=== PATIENT | male | born 1960 | race Two or more races ===

== ENCOUNTER 2018-04-26 22:14 | Emergency (ER) | payer MEDICAID ==
[~2018-04-26] VITALS: Ht 170.2 cm; Wt 77.1 kg
[~2018-04-26 22:14] MED LIST: BENTYL10 MG ORAL; CIPROFLOXACIN500 M2 ORAL; METRONIDAZOLE500 MG ORAL
[2018-04-26 23:00] VITALS: BP 168/82
--- NOTE | 2018-04-26 23:00 | NUR ---
ER Nurse Note: Pt came from home c/o blood in the stool that was first noted 1700. Pt stated mild pain, no diffculty voiding, no pain when deficating but noticed blood. Pt stated no trauma to the area. Pt a&ox4, VSS, no signs of distress. Bowel sounds heard in all quadrants. ERMD at pt side; will continue to montior.
[2018-04-26 23:42] LABS: BASOPHILS % (AUTO) 0.4 % (0.0-2.0); EOSINOPHILS % (AUTO) 1.4 % (0.0-3.0); HEMATOCRIT 47.2 % (42.0-52.0); HEMOGLOBIN 14.6 G/DL (14.2-18.0); LYMPHOCYTES % (AUTO) 17.4 % (20.0-45.0); MEAN CORPUSCULAR VOLUME 79 FL (80-99); MONOCYTES % (AUTO) 5.7 % (1.0-10.0); NEUTROPHILS % (AUTO) 75.1 % (45.0-75.0); PLATELET COUNT 452 K/UL (150-450); RED BLOOD COUNT 5.94 M/UL (4.70-6.10); WHITE BLOOD COUNT 10.8 K/UL (4.8-10.8)
[2018-04-26 23:47] LABS: BILIRUBIN, URINE NEGATIVE (NEGATIVE); GLUCOSE, URINE (UA) NEGATIVE (NEGATIVE); KETONES,URINE 1+ (NEGATIVE); NITRITE,URINE POSITIVE (NEGATIVE); PH,URINE 7 (4.5-8.0); PROTEIN,URINE 2+ (NEGATIVE); UROBILINOGEN,URINE 1 MG/DL (0.0-1.0)
[2018-04-26 23:50] LABS: ANION GAP 11 mmol/L (5-15); BLOOD UREA NITROGEN 20 mg/dL (7-18); CALCIUM 8.9 MG/DL (8.5-10.1); CARBON DIOXIDE 26 MMOL/L (21-32); CHLORIDE 104 MMOL/L (98-107); CREATININE 0.9 MG/DL (0.55-1.30); SODIUM 141 MMOL/L (136-145)
[2018-04-26 23:56] LABS: APPEARANCE,URINE CLOUDY; COLOR,URINE AMBER; LEUKOCYTE ESTERASE ,URINE 1+ (NEGATIVE)
--- NOTE | 2018-04-27 00:08 | Emergency Room Report ---
History of Present Illness General Chief Complaint: Gastrointestinal Bleed Source: Patient Present Illness [facility] This is a 57-year-old male with no past medical history. He presents with chief complaint of hematuria. Onset tonight. No pain. No obstruction. No nausea no vomiting but no fever chills. Never had this problem before. He has no weight loss in the last few weeks. Denies any other complaint. Allergies: Coded Allergies: No Known Allergies (Unverified , 04/26/18) Patient History Past Medical History: see triage record, old chart reviewed Past Surgical History: other Pertinent Family History: none Social History: Denies: smoking Immunizations: other Reviewed Nursing Documentation: PMH: Agreed; PSxH: Agreed Nursing Documentation-PMH Past Medical History: No Stated History Hx Hypertension: Yes Review of Systems Eye: Denies: eye pain, blurred vision ENT: Denies: ear pain, nose congestion, throat swelling Respiratory: Denies: cough, shortness of breath Cardiovascular: Denies: chest pain, palpitations Gastrointestinal: Denies: abdominal pain, diarrhea, nausea, vomiting Genitourinary: Reports: hematuria Musculoskeletal: Denies: back pain, joint pain Skin: Denies: rash Neurological: Denies: headache, numbness Endocrine: Denies: increased thirst, increased urine Hematologic/Lymphatic: Denies: easy bruising All Other Systems: negative except mentioned in HPI Physical Exam Vital Signs Date Time Temp Pulse Resp B/P (MAP) Pulse Ox O2 Delivery O2 Flow Rate FiO2 04/26/18 22:42 98.8 74 16 168/82 96 Room Air vitals with high blood pressure Sp02 EP Interpretation: reviewed, normal General Appearance: well appearing, no apparent distress, alert Head: normocephalic, atraumatic Eyes: bilateral eye PERRL, bilateral eye EOMI ENT: hearing grossly normal, normal pharynx Neck: full range of motion, supple, no meningismus Respiratory: chest non-tender, lungs clear, normal breath sounds Cardiovascular #1: regular rate, rhythm, no murmur Gastrointestinal: normal bowel sounds, non tender, no mass, no organomegaly, no bruit, non-distended Musculoskeletal: back normal, gait/station normal, normal range of motion Psychiatric: mood/affect normal Skin: warm/dry Medical Decision Making Diagnostic Impression: Primary Impression: Hematuria, gross Additional Impressions: Terminal ileitis Qualified Codes: K50.00 - Crohn's disease of small intestine without complications Colitis ER Course History with gross hematuria. CT scan is negative for etiology is the cause of his gross hematuria. Infection is unlikely. Worse him for possible neoplastic process. He does have terminal ileitis that was seen in 2014 also. We will discharge home with referral to see GI DrDallin and urologist. Lab Results Impression labs unremarkable CT/MRI/US Diagnostic Results CT/MRI/US Diagnostic Results : Imaging Test Ordered: CT abdomen and pelvis Impression Read by radiologist. Stenosis at the terminal ileum with long segment circumferential mucosal thickening and fat stranding. Insistent with active inflammation. Colitis involving the descending and sigmoid colon. galsstones. Last Vital Signs Date Time Temp Pulse Resp B/P (MAP) Pulse Ox O2 Delivery O2 Flow Rate FiO2 04/26/18 22:42 98.8 74 16 168/82 96 Room Air Status: improved Disposition: HOME, SELF-CARE Condition: Stable Scripts Metronidazole* (FLAGYL*) 500 Mg Tablet 500 MG ORAL BID, #14 TAB Prov: Ozzy Torres MD 04/27/18 Ciprofloxacin Hcl* (CIPROFLOXACIN HCL*) 500 Mg Tablet 500 MG ORAL Q12H, #14 TAB 0 Refills Prov: Ozzy Torres MD 04/27/18 Additional Instructions: Follow-up with your DrDallin in 7 days. Return if you cannot urinate. You will need a referral to see a urologist for cystoscopy to rule out cancer. You will need a referral to see a GI doctor for colonoscopy. Ozzy Torres MD Apr 27, 2018 00:08
[2018-04-27] MEDS ORDERED: METRONIDAZOLE500 MG ORAL (00:17)
[2018-04-27] MEDS ORDERED: CIPROFLOXACIN500 M2 ORAL (00:17)
[2018-04-27 00:30] VITALS: BP 146/74
--- NOTE | 2018-04-27 00:30 | NUR ---
ED Nurse Note Pt seen, treated, medically cleared by ER MD for discharge. Discharge instructions and prescription given with repeat verbalization by pt. Instructed pt to follow up with primary care physican within one week. ID band/IV removed, site clean and bandaged. Pt is AAO x4, VSS, no signs of distress, ambulatory and left with all belongings.
--- NOTE | 2018-04-27 09:06 | Diagnostic Imaging Report ---
Indication: Abdominal pain for 3 days Technique: Spiral acquisitions obtained through the abdomen and pelvis. No oral contrast utilized, per emergency room physician request No IV contrast utilized, per referring physician request.. Multiplanar reconstructions were generated. Total dose length product 673.84 mGycm. CTDIvol(s) 12.7 mGy. Dose reduction achieved using automated exposure control Comparison: None Findings: There is a small mural lipoma in the wall of the sigmoid colon. The appendix is normal. There is marked wall thickening and mural fatty proliferation of the terminal ileum which is mildly prominent. There is also some engorgement of the feeding vessels. There is equivocal mild wall thickening of the jejunum. No dilatation to suggest obstructive pathology. There is apparent mild wall thickening of the sigmoid, but this is probably an artifact of under distention. There is mesenteric root lymphadenopathy. No free or loculated intraperitoneal air or fluid is demonstrated. Distal esophagus, stomach, duodenum are unremarkable. No evidence of diverticulosis or diverticulitis Lack of IV contrast limits assessment of the solid organs. The liver is grossly unremarkable. The gallbladder contains numerous gallstones. It is nondistended. The bile ducts are nondilated. The pancreas is grossly unremarkable. The spleen is borderline enlarged, measuring 13 cm long axis dimension. The adrenals and kidneys are unremarkable. No renal or ureteral calculi, hydronephrosis, or hydroureter. No pelvic mass or adenopathy. No retroperitoneal mass or adenopathy. The included lung bases are clear. The bones demonstrate a bone island in the right iliac wing. Impression: Mild distention, wall thickening and mural fatty proliferation of the terminal ileum. Prominence of the adjacent vascular arcades and mesenteric root lymphadenopathy. Findings are highly suggestive of inflammatory bowel disease Equivocal mild wall thickening of the jejunum, could also indicate enteritis changes but this is a doubtful finding Cholelithiasis Borderline splenomegaly Other findings as noted, including right iliac wing bone island, sigmoid colon mural lipoma This agrees with the preliminary interpretation provided overnight by [facility] teleradiology service, with minor variation. The CT scanner at [facility] is accredited by the [employer] and the scans are performed using protocols designed to limit radiation exposure to as low as reasonably achievable to attain images of sufficient resolution adequate for diagnostic evaluation.
== END 2018-04-27 00:30 | disposition home or self-care (01) ==
LOC: EMR 23:26
DX: R31.0 Gross hematuria (principal); K52.89 Other specified noninfective gastroenteritis and colitis; K52.9 Noninfective gastroenteritis and colitis, unspecified; I10 Essential (primary) hypertension
CPT/HCPCS: 36415; 74176; 80048; 81003; 85025; 85610; 85730; 99284

== ENCOUNTER 2018-05-06 13:33 | Outpatient (CLI) | payer MEDICAID ==
[~2018-05-06] VITALS: Ht 170.2 cm; Wt 78.5 kg
[2018-05-06 16:02] VITALS: BP 147/83
--- NOTE | 2018-05-06 21:45 | Consultation ---
DATE OF CONSULTATION: 05/06/2018 CHIEF COMPLAINT: Abdominal pain. HISTORY OF PRESENT ILLNESS: The patient is a 58-year-old male, who was seen in the ER for hematuria. The CT scan showed evidence of inflammation in the terminal ileum and possible colitis. The patient was given Cipro and Flagyl and was sent home. The patient also had evidence of gallstones on the imaging studies, but the patient was referred for gastrointestinal for evaluation. PAST MEDICAL HISTORY: 1. Gallstones. 2. History of kidney stones. PAST SURGICAL HISTORY: None. MEDICATIONS: Cipro and Flagyl. ALLERGIES: No known drug allergies. FAMILY HISTORY: No family history of malignancy. SOCIAL HISTORY: The patient denies any tobacco, alcohol, or drug abuse. REVIEW OF SYSTEMS: A 10-point review of systems was performed and pertinent positives in the history of present illness. PHYSICAL EXAMINATION: VITAL SIGNS: Temperature 98.3, pulse is 72, respirations 20, and blood pressure is 147/83. HEENT: Normocephalic, atraumatic. Sclerae anicteric. NECK: Supple. No evidence of lymphadenopathy. CARDIOVASCULAR: Regular rate and rhythm. Plus S1 and S2. LUNGS: Clear to auscultation bilaterally. ABDOMEN: Soft and nontender. No rebound. No guarding. No peritoneal sign. EXTREMITIES: No cyanosis. No clubbing. No edema. ASSESSMENT AND PLAN: 1. Colitis seen on the CT with possible terminal ileal involvement suspicious for inflammatory bowel disease. At this time, the patient is asymptomatic. Plan to get an approval for colonoscopy from insurance for authorization and scheduling for colonoscopy. The patient was given the prep instruction and prescription with the prep and pending to get authorization. 2. Gallstones, asymptomatic at this time. We will monitor. 3. Hematuria. The patient has an appointment with urologist and was encouraged to follow up with the . Mario Vences M.D. DR: MEME JOB#: [id number] CC:
== END 2018-05-06 15:33 | disposition home or self-care (01) ==
LOC: PAN 13:33
DX: K52.9 Noninfective gastroenteritis and colitis, unspecified (principal); K80.80 Other cholelithiasis without obstruction; R31.9 Hematuria, unspecified
CPT/HCPCS: 99202

== ENCOUNTER 2018-06-10 12:47 | Outpatient (CLI) | payer MEDICAID ==
[2018-06-10 13:00] VITALS: BP 149/83
--- NOTE | 2018-06-10 13:51 | General Progress Note ---
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
== END 2018-06-10 15:55 | disposition home or self-care (01) ==
LOC: PAN 12:47
DX: K50.90 Crohn's disease, unspecified, without complications (principal); D49.4 Neoplasm of unspecified behavior of bladder; F17.200 Nicotine dependence, unspecified, uncomplicated
CPT/HCPCS: 99212